=== PATIENT | male | born 1980 | race American Indian/Alaskan Native ===

== ENCOUNTER 2016-05-19 10:08 | Emergency (ER) | payer MEDICARE, MEDICAID ==
[2016-05-19 10:18] VITALS: BP 151/84
[2016-05-19] MEDS ORDERED: Lidocaine 1% 30 ML SDV INJECT ONE (10:34)
[2016-05-19] MEDS ORDERED: cefTRIAXone 1 GM, Lidocaine 1% 2.1 ML IM ONE ×2 (11:00)
[2016-05-19] MEDS ORDERED: Acetaminophen/HYDROcodone 325-5 MG Tab PO ONE (11:01)
[2016-05-19] MEDS ORDERED: Acetaminophen/HYDROcodone 325-10 MG Tab PO ONE (11:18)
--- NOTE | 2016-05-19 14:21 | ER ---
SUBJECTIVE: The patient is a 35-year-old, morbidly obese male with a history of boils and abscesses that have needed drain, and he has even been hospitalized 2 days before, comes back in with another one for about 3 days under his right axilla. No fevers. Feels chills at time. Denies traumas. No shortness of breath. He does have a history of MRSA. He was hoping it would go way, but it has only gotten worse. No other issues. No nausea, vomiting, or diarrhea. He did take an ibuprofen. PAST MEDICAL HISTORY: Significant for boils and abscesses needing drainage and hospitalization and history of MRSA. History of cellulitis. He had pins in hips as a child. CURRENT MEDICATIONS: He does take ibuprofen on occasion. ALLERGIES: He denies any allergies. SOCIAL HISTORY: He does use tobacco. No drugs or alcohol. REVIEW OF SYSTEMS: No fevers. Some chills. No headache. No chest pain or shortness of breath. No abdominal pain. No bowel or bladder changes. No trauma. Please see HPI. PHYSICAL EXAMINATION: Vital Signs: Stable. He is afebrile. He is in quite a bit of pain. He walks in with his right arm up off his side trying to keep pressure from his right axilla. No respiratory distress. Fairly good historian. HEENT: Normocephalic and atraumatic. EXTREMITIES: Focused exam of his right axilla shows a softball sized mass, it is slightly fluctuant at the apex. There is some induration, it is warm, very mild redness. It is isolated to this area, does not appear to go very deep, does not go down the chest wall or down the arm. No lymphadenopathy appreciated anywhere in the neck or the axilla. He has good pulses down the right arm. Good capillary refill. EMERGENCY ROOM COURSE: His right axilla area is swabbed with multiple Povadine sticks, sterile field developed, 1% lidocaine is used for local anesthesia, set up for I and D performed, #11 scalpel used to sharply incise by about 1 inch over the fluctuant apex part of the abscess, large amount of white purulent sanguinous material removed, curved clamps used to scrape the edges in bottom. Further debris removed. The area was washed out, it was then carefully packed with quarter-inch gauze with a tail hanging out and then multiple 4 x 4 gauze was packed on top of this and the area all cleansed and then the patient able to put his arm back down to hold it in place. Culture of the depths of the wound was performed during the procedure. He was given a gram of Rocephin and a tablet of hydrocodone 10/325. He tolerated the procedure well. There were no complications. He feels much better. ASSESSMENT: 1. Right axillary abscesses with I and D of same. Culture obtained. 2. The patient with history of:. a. Boils and I and D and requiring hospitalization. b. History of Methicillin-resistant Staphylococcus aureus. PLAN: Prescription for Bactrim DS 1 p.o. b.i.d. for 10 days, small prescription of hydrocodone 5/325, 1 to 2 q.8 hours p.r.n. severe pain, not controlled by baseline meds with Tylenol and ibuprofen. Keep clean and dry. Dressing changes at least once a day. Follow up with PCP this next week. Make sure change dressing every day. [facility] /[id number]
== END 2016-05-19 11:22 | disposition home or self-care (01) ==
LOC: DL.ED 10:08
DX: L02.411 Cutaneous abscess of right axilla (principal); Z86.14 Personal history of Methicillin resistant Staphylococcus aureus infection
CPT/HCPCS: 10061; 87070; 87077; 87186; 96372; 99283; 99284; A9270; J0696

== ENCOUNTER 2020-01-23 20:07 | Emergency (ER) | payer MEDICAID, MEDICARE ==
[2020-01-23] MEDS ORDERED: Ketorolac 30 MG/ML SDV IVPUSH ONE (20:23)
[2020-01-23] MEDS ORDERED: Ondansetron 4 MG/2 ML SDV IVPUSH ONE (20:23)
[2020-01-23] MEDS ORDERED: Sodium Chloride 0.9% 1,000 ML IV ONE (20:23)
--- NOTE | 2020-01-23 20:27 | EDM.PDOC ---
ED HPI GENERAL MEDICAL PROBLEM - General Chief Complaint: General Stated Complaint: SEVERE BODY ACHES Time Seen by Provider: 01/23/20 20:25 Source of Information: Reports: Patient History Limitations: Reports: No Limitations - History of Present Illness INITIAL COMMENTS - FREE TEXT/NARRATIVE: c/o RUQ pain going to right flank. ate hot dogs last night and been having this pain since about 10pm last night. thought it would go away but not, so came here. Middle Epigastric Pain Score (Numeric/FACES): 8 - Related Data Allergies Allergy/AdvReac Type Severity Reaction Status Date / Time No Known Allergies Allergy Verified 05/19/16 10:17 Home Meds: Home Meds . [No Known Home Meds] 10/02/14 [History] Ibuprofen [Advil] 1,000 mg PO ASDIRECTED PRN 05/19/16 [History] Past Medical History - Past Health History Medical/Surgical History: Denies Medical/Surgical History HEENT History: Reports: None Cardiovascular History: Reports: None Respiratory History: Reports: None Gastrointestinal History: Reports: None Genitourinary History: Reports: None Musculoskeletal History: Reports: None Neurological History: Reports: None Psychiatric History: Reports: None Endocrine/Metabolic History: Reports: None Hematologic History: Reports: None Other Immunologic History: MRSA Oncologic (Cancer) History: Reports: None Dermatologic History: Reports: Cellulitis, Other (See Below) Other Dermatologic History: abscess - Infectious Disease History Infectious Disease History: Reports: MRSA - Past Surgical History Head Surgeries/Procedures: Reports: None Other Musculoskeletal Surgeries/Procedures:: pins in hips as a child (10 years) Social & Family History - Caffeine Use Caffeine Use: Reports: Coffee, Soda - Living Situation & Occupation Living situation: Reports: with Significant Other, with Family ED ROS GENERAL - Review of Systems Review Of Systems: Comprehensive ROS is negative, except as noted in HPI. ED EXAM, GENERAL - Physical Exam Exam: See Below Exam Limited By: No Limitations General Appearance: Alert, WD/WN, Mild Distress, Moderate Distress, Other (pain rolling about) Ears: Hearing Grossly Normal Throat/Mouth: Normal Voice, No Airway Compromise Head: Atraumatic Neck: Non-Tender, Full Range of Motion Respiratory/Chest: No Respiratory Distress Cardiovascular: Regular Rate, Rhythm GI/Abdominal: Guarding, Tender, Other (RUQ). No: Distended, Rigid, Rebound (Male) Exam: Deferred Rectal (Males) Exam: Deferred Neurological: Alert, Oriented, Normal Cognition, Normal Gait, No Motor/Sensory Deficits Psychiatric: Tearful Skin Exam: Warm, Dry, Normal Color Lymphatic: No Adenopathy Course - Vital Signs Last Recorded V/S: Last Vital Signs Temp 36.7 C 01/23/20 20:29 Pulse 72 01/23/20 20:29 Resp 20 01/23/20 20:29 BP 125/55 L 01/23/20 20:29 Pulse Ox 100 01/23/20 20:29 - Orders/Labs/Meds Orders: Active Orders 24 hr Category Date Time Status CORONAVIRUS COVID-19 PCR PHL Routine Lab 01/23/20 20:20 Received LORazepam [Ativan] Med 01/23/20 21:14 Once 1 mg PO ONETIME ONE Sodium Chloride 0.9% [Normal Saline] 1,000 ml Med 01/23/20 20:23 Active IV .BOLUS Isolation [COMM] Routine Oth 01/23/20 20:15 Active Medication Orders Sodium Chloride (Normal Saline) 1,000 mls @ 999 mls/hr IV .BOLUS ONE Stop: 01/23/20 21:23 Last Admin: 01/23/20 20:41 Dose: 999 mls/hr Documented by: JAVIER Labs: Laboratory Tests 01/23/20 01/23/20 01/23/20 Range/Units 20:20 20:20 20:31 WBC 8.7 (5.0-10.0) 10^3/uL RBC 4.94 (4.6-6.2) 10^6/uL Hgb 15.2 (14.0-18.0) g/dL Hct 44.8 (40.0-54.0) % MCV 90.7 (80-100) fL MCH 30.8 (27.0-34.0) pg MCHC 33.9 (33.0-35.0) g/dL Plt Count 202 (150-450) 10^3/uL Neut % (Auto) 73.8 (42.2-75.2) % Lymph % (Auto) 16.6 L (20.5-50.1) % [place] % (Auto) 7.7 (2-8) % Eos % (Auto) 1.4 (1.0-3.0) % Baso % (Auto) 0.5 (0.0-1.0) % Sodium (136-145) mmol/L Potassium (3.5-5.1) mmol/L Chloride (98-107) mmol/L Carbon Dioxide (21-32) mmol/L Anion Gap (7-13) mEq/L BUN (7-18) mg/dL Creatinine (0.70-1.30) mg/dL Est Cr Clr Drug Dosing mL/min Estimated GFR (MDRD) BUN/Creatinine Ratio (No establ ref range) Glucose (74-99) mg/dL Calcium (8.5-10.1) mg/dL Total Bilirubin (0.2-1.0) mg/dL AST (15-37) U/L ALT (16-63) U/L Alkaline Phosphatase (46-116) U/L Total Protein (6.4-8.2) g/dL Albumin (3.4-5.0) g/dL Globulin Albumin/Globulin Ratio Amylase (25-115) U/L Lipase (73-393) U/L Urine Color Dark yellow (YELLOW) Urine Appearance Clear (CLEAR) Urine pH 6.0 (5.0-9.0) Ur Specific [place] >= 1.030 (1.005-1.030) Urine Protein Negative (NEGATIVE) Urine Glucose (UA) Negative (NEGATIVE) Urine Ketones >=160 H (NEGATIVE) Urine Occult Blood Negative (NEGATIVE) Urine Nitrite Negative (NEGATIVE) Urine Bilirubin Small H (NEGATIVE) Urine Urobilinogen 1.0 (0.2-1.0) mg/dL Ur Leukocyte Esterase Negative (NEGATIVE) Urine Opiates Screen Negative (NEGATIVE) Ur Oxycodone Screen Negative (NEGATIVE) Urine Methadone Screen Negative (NEGATIVE) Ur Barbiturates Screen Negative (NEGATIVE) U Tricyclic Antidepress Negative (NEGATIVE) Ur Phencyclidine Scrn Negative (NEGATIVE) Ur Amphetamine Screen Positive H (NEGATIVE) U Methamphetamines Scrn Positive H (NEGATIVE) Urine MDMA Screen Negative (NEGATIVE) U Benzodiazepines Scrn Negative (NEGATIVE) Urine Cocaine Screen Negative (NEGATIVE) U Marijuana (THC) Screen Positive H (NEGATIVE) 01/23/20 Range/Units 20:31 WBC (5.0-10.0) 10^3/uL RBC (4.6-6.2) 10^6/uL Hgb (14.0-18.0) g/dL Hct (40.0-54.0) % MCV (80-100) fL MCH (27.0-34.0) pg MCHC (33.0-35.0) g/dL Plt Count (150-450) 10^3/uL Neut % (Auto) (42.2-75.2) % Lymph % (Auto) (20.5-50.1) % [place] % (Auto) (2-8) % Eos % (Auto) (1.0-3.0) % Baso % (Auto) (0.0-1.0) % Sodium 136 (136-145) mmol/L Potassium 3.6 (3.5-5.1) mmol/L Chloride 100 (98-107) mmol/L Carbon Dioxide 25 (21-32) mmol/L Anion Gap 14.6 H (7-13) mEq/L BUN 17 (7-18) mg/dL Creatinine 0.91 (0.70-1.30) mg/dL Est Cr Clr Drug Dosing 114.76 mL/min Estimated GFR (MDRD) > 60 BUN/Creatinine Ratio 18.7 (No establ ref range) Glucose 166 H (74-99) mg/dL Calcium 8.2 L (8.5-10.1) mg/dL Total Bilirubin 0.8 (0.2-1.0) mg/dL AST 23 (15-37) U/L ALT 25 (16-63) U/L Alkaline Phosphatase 67 (46-116) U/L Total Protein 7.0 (6.4-8.2) g/dL Albumin 3.5 (3.4-5.0) g/dL Globulin 3.5 Albumin/Globulin Ratio 1.0 Amylase 33 (25-115) U/L Lipase 56 L (73-393) U/L Urine Color (YELLOW) Urine Appearance (CLEAR) Urine pH (5.0-9.0) Ur Specific [place] (1.005-1.030) Urine Protein (NEGATIVE) Urine Glucose (UA) (NEGATIVE) Urine Ketones (NEGATIVE) Urine Occult Blood (NEGATIVE) Urine Nitrite (NEGATIVE) Urine Bilirubin (NEGATIVE) Urine Urobilinogen (0.2-1.0) mg/dL Ur Leukocyte Esterase (NEGATIVE) Urine Opiates Screen (NEGATIVE) Ur Oxycodone Screen (NEGATIVE) Urine Methadone Screen (NEGATIVE) Ur Barbiturates Screen (NEGATIVE) U Tricyclic Antidepress (NEGATIVE) Ur Phencyclidine Scrn (NEGATIVE) Ur Amphetamine Screen (NEGATIVE) U Methamphetamines Scrn (NEGATIVE) Urine MDMA Screen (NEGATIVE) U Benzodiazepines Scrn (NEGATIVE) Urine Cocaine Screen (NEGATIVE) U Marijuana (THC) Screen (NEGATIVE) Meds: Medications Generic Name Dose Route Start Last Admin Trade Name Freq PRN Reason Stop Dose Admin Sodium Chloride 1,000 mls @ 999 mls/hr 01/23/20 20:23 01/23/20 20:41 Normal Saline IV 01/23/20 21:23 999 mls/hr .BOLUS ONE Administration Discontinued Medications Generic Name Dose Route Start Last Admin Trade Name Freq PRN Reason Stop Dose Admin Ketorolac Tromethamine 30 mg 01/23/20 20:23 01/23/20 20:42 Toradol IVPUSH 01/23/20 20:24 30 mg ONETIME ONE Administration Ondansetron HCl 4 mg 01/23/20 20:23 01/23/20 20:41 Zofran IVPUSH 01/23/20 20:24 4 mg ONETIME ONE Administration - Re-Assessments/Exams Free Text/Narrative Re-Assessment/Exam: 01/23/20 21:16 results discussed with pt. Departure - Departure Time of Disposition: 21:16 Disposition: Home, Self-Care 01 Condition: Good Clinical Impression: Methamphetamine abuse Abdominal pain Qualifiers: Abdominal location: right upper quadrant Qualified Code(s): R10.11 - Right upper quadrant pain - Discharge Information Instructions: Abdominal Pain, Adult, [id number] Forms: ED Department Discharge Additional Instructions: 1) avoid solid foods next 48 hours 2) follow up at clinic Sepsis Event Note (ED) - Focused Exam Vital Signs: Vital Signs Temp Pulse Resp BP Pulse Ox 01/23/20 20:29 36.7 C 72 20 125/55 L 100 - My Orders Last 24 Hours: My Active Orders 01/23/20 20:15 Isolation [COMM] Routine 01/23/20 20:20 CORONAVIRUS COVID-19 PCR PHL Routine 01/23/20 20:23 Sodium Chloride 0.9% [Normal Saline] 1,000 ml IV .BOLUS 01/23/20 21:14 LORazepam [Ativan] 1 mg PO ONETIME ONE - Assessment/Plan Last 24 Hours: My Active Orders 01/23/20 20:15 Isolation [COMM] Routine 01/23/20 20:20 CORONAVIRUS COVID-19 PCR PHL Routine 01/23/20 20:23 Sodium Chloride 0.9% [Normal Saline] 1,000 ml IV .BOLUS 01/23/20 21:14 LORazepam [Ativan] 1 mg PO ONETIME ONE
[2020-01-23 20:40] VITALS: BP 125/55; PULSE 72
[2020-01-23 20:56] LABS: ANION GAP 14.6 mEq/L (7-13); CHLORIDE,CL 100 mmol/L (98-107); SODIUM,NA 136 mmol/L (136-145)
[2020-01-23] MEDS ORDERED: LORazepam 1 MG Tab PO ONE (21:14)
== END 2020-01-23 21:25 | disposition home or self-care (01) ==
LOC: DL.ED 20:07
DX: R10.11 Right upper quadrant pain (principal); R10.13 Epigastric pain; F15.10 Other stimulant abuse, uncomplicated
CPT/HCPCS: 36415; 80053; 80305; 81003; 82150; 83690; 85025; 87635; 87804; 96374; 96375; 99284; A9270; J1885; J2405; J7030; U0002

== ENCOUNTER 2020-03-08 10:28 | Emergency (ER) | payer SELFPAY | END 2020-03-08 11:33 | disposition left against medical advice (07) | LOC: DL.ED 10:28 | DX: Z53.21 Procedure and treatment not carried out due to patient leaving prior to being seen by health care provider (principal) ==

== ENCOUNTER 2020-03-12 12:04 | Emergency (ER) | payer SELFPAY ==
[2020-03-12 12:13] VITALS: BP 138/73; PULSE 93
[2020-03-12] MEDS ORDERED: Azithromycin 250 MG Tab PO ONE (13:12)
[2020-03-12] MEDS ORDERED: cefTRIAXone 1 GM, Lidocaine 1% 2.1 ML IM ONE ×2 (13:12)
--- NOTE | 2020-03-12 13:24 | EDM.PDOC ---
ED HPI GENERAL MEDICAL PROBLEM - General Chief Complaint: Genitourinary Problem Stated Complaint: STOMACH Time Seen by Provider: 03/12/20 12:35 Source of Information: Reports: Patient, Old Records, RN, RN Notes Reviewed History Limitations: Reports: No Limitations - History of Present Illness INITIAL COMMENTS - FREE TEXT/NARRATIVE: Pt states that he has an STD, states that he has green drainage from his penis, states that this has been going on for 1 week, states that he has not seen his primary care for this issue. He is upset because he has been for 10 years and faithful to his . Onset: Gradual Duration: Day(s): (1-2) Location: Reports: Other (Penis) Quality: Reports: Burning Severity: Moderate Improves with: Reports: None Worsens with: Reports: None Associated Symptoms: Reports: No Other Symptoms Lower Abdomen Pain Score (Numeric/FACES): 6 - Related Data Allergies Allergy/AdvReac Type Severity Reaction Status Date / Time No Known Allergies Allergy Verified 03/12/20 12:13 Home Meds: Home Meds . [No Known Home Meds] 10/02/14 [History] Past Medical History - Past Health History Medical/Surgical History: Denies Medical/Surgical History HEENT History: Reports: None Cardiovascular History: Reports: None Respiratory History: Reports: None Gastrointestinal History: Reports: None Genitourinary History: Reports: None Musculoskeletal History: Reports: None Neurological History: Reports: None Psychiatric History: Reports: None Endocrine/Metabolic History: Reports: None Hematologic History: Reports: None Other Immunologic History: MRSA Oncologic (Cancer) History: Reports: None Dermatologic History: Reports: Cellulitis Other Dermatologic History: abscess - Infectious Disease History Infectious Disease History: Reports: MRSA - Past Surgical History Head Surgeries/Procedures: Reports: None Other Musculoskeletal Surgeries/Procedures:: pins in hips as a child (10 years) Social & Family History - Tobacco Use Tobacco Use Status *Q: Current Every Day Tobacco User Years of Tobacco use: 1 Packs/Tins Daily: 0.2 Second Hand Smoke Exposure: Yes - Caffeine Use Caffeine Use: Reports: Coffee, Energy Drinks, Soda, Tea - Recreational Drug Use Recreational Drug Use: No - Living Situation & Occupation Living situation: Reports: with Significant Other, with Family ED ROS GENERAL - Review of Systems Review Of Systems: Comprehensive ROS is negative, except as noted in HPI. ED EXAM, RENAL/ - Physical Exam Exam: See Below Exam Limited By: No Limitations General Appearance: Alert, WD/WN, No Apparent Distress Head: Atraumatic, Normocephalic Neck: Normal Inspection Respiratory/Chest: No Respiratory Distress, Lungs Clear, Normal Breath Sounds, No Accessory Muscle Use, Chest Non-Tender Cardiovascular: Regular Rate, Rhythm GI/Abdominal: Normal Bowel Sounds, Soft, Non-Tender, No Organomegaly, No Distention, No Abnormal Bruit, No Mass (Male) Exam: Urethral Discharge Back Exam: Normal Inspection Extremities: Normal Inspection Neurological: Alert, Oriented, No Motor/Sensory Deficits Psychiatric: Normal Mood Skin Exam: Warm, Dry, Intact, Normal Color, No Rash Course - Vital Signs Last Recorded V/S: Last Vital Signs Temp 97.8 F 03/12/20 12:09 Pulse 93 03/12/20 12:09 Resp 18 03/12/20 12:09 BP 138/73 03/12/20 12:09 Pulse Ox 100 03/12/20 12:09 - Orders/Labs/Meds Orders: Active Orders 24 hr Category Date Time Status CHLAMYDIA AND GONORRHEA BY TMA Routine Lab 03/12/20 12:15 Received CULTURE URINE [RM] Stat Lab 03/12/20 12:15 Received Labs: Laboratory Tests 03/12/20 Range/Units 12:15 Urine Color Yellow (YELLOW) Urine Appearance Cloudy (CLEAR) Urine pH 6.0 (5.0-9.0) Ur Specific [place] >= 1.030 (1.005-1.030) Urine Protein Trace H (NEGATIVE) Urine Glucose (UA) Negative (NEGATIVE) Urine Ketones Negative (NEGATIVE) Urine Occult Blood Small H (NEGATIVE) Urine Nitrite Negative (NEGATIVE) Urine Bilirubin Negative (NEGATIVE) Urine Urobilinogen 0.2 (0.2-1.0) mg/dL Ur Leukocyte Esterase Moderate H (NEGATIVE) Urine RBC 10-20 H /HPF Urine WBC Packed H (0-5/HPF) /HPF Ur Epithelial Cells Not seen (NOT SEEN) /HPF Urine Bacteria Moderate H (0-FEW/HPF) /HPF Meds: Medications Discontinued Medications Generic Name Dose Route Start Last Admin Trade Name Freq PRN Reason Stop Dose Admin Azithromycin 1,000 mg 03/12/20 13:12 03/12/20 13:25 Zithromax PO 03/12/20 13:13 1,000 mg ONETIME ONE Administration Ceftriaxone Sodium 1 gm/ 0 gm 03/12/20 13:12 Lidocaine HCl 2.1 ml IM 03/12/20 13:13 ONETIME ONE Departure - Departure Time of Disposition: 13:22 Disposition: Home, Self-Care 01 Condition: Good Clinical Impression: Ureteritis - Discharge Information *PRESCRIPTION DRUG MONITORING PROGRAM REVIEWED*: Not Applicable *COPY OF PRESCRIPTION DRUG MONITORING REPORT IN PATIENT SANGEETHA: Not Applicable Instructions: Sexually Transmitted Disease, [id number] Forms: ED Department Discharge Additional Instructions: Rx: Doxycycline 100mg Drink plenty of water. No sexual activity until you are rechecked in clinic in 7 to 10 days. Sepsis Event Note (ED) - Evaluation Sepsis Screening Result: No Definite Risk - Focused Exam Vital Signs: Vital Signs Temp Pulse Resp BP Pulse Ox 03/12/20 12:09 97.8 F 93 18 138/73 100 - My Orders Last 24 Hours: My Active Orders 03/12/20 12:15 CHLAMYDIA AND GONORRHEA BY TMA Routine CULTURE URINE [RM] Stat - Assessment/Plan Last 24 Hours: My Active Orders 03/12/20 12:15 CHLAMYDIA AND GONORRHEA BY TMA Routine CULTURE URINE [RM] Stat
[2020-03-14 11:47] LABS: C.TRACHOMATIS BY TMA Negative (Negative); N.GONORRHOEAE BY TMA Positive (Negative)
== END 2020-03-12 13:44 | disposition home or self-care (01) ==
LOC: DL.ED 12:04
DX: N34.2 Other urethritis (principal)
CPT/HCPCS: 81001; 87086; 87491; 87591; 96372; 99283; A9270-GY; J0696; J2001

== ENCOUNTER 2020-12-04 23:26 | Emergency (ER) | payer OTHER, MEDICAID ==
[2020-12-04] MEDS ORDERED: Metoclopramide 10 MG/2 ML SDV IV ONE (23:27)
[2020-12-04] MEDS ORDERED: Lactated Ringers 1,000 ML IV ONE ×2 (23:27→23:37)
[2020-12-04] MEDS ORDERED: Ondansetron 4 MG/2 ML SDV IV ONE (23:27)
[2020-12-04] MEDS ORDERED: HYDROmorphone 1 MG/ML Syringe IV ONE (23:27)
[2020-12-04] MEDS ORDERED: Ondansetron 4 MG/2 ML SDV IVPUSH ONE (23:37)
--- NOTE | 2020-12-04 23:38 | EDM.PDOC ---
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 six hours, as pain and swelling persist. You may also take acetaminophen (Tylenol) 650-1000mg every six hours, as pain persists. You may stagger these medications so you are taking a dose every three hours. 2.) You may apply ice to the affected areas, as pain persists; 20 minutes, every hour. 3.) You may apply BioFreeze (or similar ointment/cream) to areas of soreness, per package recommendations. 4.) Do not drink alcohol to excess. Do not drink and drive vehicles. 5.) Follow up with your primary care provider regarding today's visit in 3-5 days. - My Orders Last 24 Hours: My Active Orders 12/04/20 23:36 EKG Documentation Completion [RC] STAT - Assessment/Plan Last 24 Hours: My Active Orders 12/04/20 23:36 EKG Documentation Completion [RC] STAT
[2020-12-04] MEDS ORDERED: Iopamidol 612 MG/ML 50 ML SDV IVPUSH ONE (23:41)
[2020-12-04] MEDS ORDERED: Iopamidol 612 MG/ML 100 ML Bottle IVPUSH ONE (23:41)
[2020-12-04] MEDS ORDERED: HYDROmorphone 1 MG/ML Syringe IVPUSH ONE (23:45)
[2020-12-05 00:02] LABS: AMPHETAMINES,URINE NEGATIVE (NEGATIVE); BARBITURATES,URINE NEGATIVE (NEGATIVE); BENZODIAZEPINE,URINE NEGATIVE (NEGATIVE); MDMA (ECSTASY), URINE NEGATIVE (NEGATIVE); METHADONE,URINE NEGATIVE (NEGATIVE); METHAMPHETAMINES,URINE NEGATIVE (NEGATIVE); OPIATES,URINE NEGATIVE (NEGATIVE); OXYCODONE,URINE NEGATIVE (NEGATIVE); PHENCYCLIDINE,URINE NEGATIVE (NEGATIVE); TCA,URINE NEGATIVE (NEGATIVE)
[2020-12-05 00:03] LABS: ANION GAP 16.6 mEq/L (7-13); CHLORIDE,CL 109 mmol/L (98-107); SODIUM,NA 144 mmol/L (136-145)
[2020-12-05 00:29] LABS: PTT,PARTIAL THROMBOPLSTIN TIME 22.1 SEC (22.0-34.0)
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
[2020-12-05] MEDS ORDERED: HYDROmorphone 1 MG/ML Syringe IVPUSH ONE (00:42)
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
[2020-12-05] MEDS ORDERED: Metoclopramide 10 MG/2 ML SDV IVPUSH ONE (00:47)
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
== END 2020-12-05 01:33 | disposition home or self-care (01) ==
LOC: DL.ED 23:26
DX: S20.312A Abrasion of left front wall of thorax, initial encounter (principal); M48.07 Spinal stenosis, lumbosacral region; K57.90 Diverticulosis of intestine, part unspecified, without perforation or abscess without bleeding; F10.129 Alcohol abuse with intoxication, unspecified; Y90.6 Blood alcohol level of 120-199 mg/100 ml; V49.40XA Driver injured in collision with unspecified motor vehicles in traffic accident, initial encounter; Y92.410 Unspecified street and highway as the place of occurrence of the external cause
CPT/HCPCS: 36415; 51701; 70450; 71260; 72125; 73080-LT; 74177; 80053; 80305-QW; 80307; 81003; 83605; 83735; 83880; 84484; 85025; 85610; 85730; 86140; 86850; 86900; 86901; 96374; 96375; 96376; 99285-25; J1170; J2405; J2765; J7120; Q9967

== ENCOUNTER 2020-12-06 09:51 | Emergency (ER) | payer MEDICAID ==
[2020-12-06 10:11] VITALS: BP 142/90; PULSE 62
[2020-12-06] MEDS ORDERED: Lidocaine 1% 30 ML SDV INJECT ONE (11:50)
[2020-12-06] MEDS ORDERED: Clindamycin HCl 150 MG Cap PO ONE (11:50)
[2020-12-06] MEDS ORDERED: traMADol 50 MG Tab PO ONE (11:50)
[2020-12-06] MEDS ORDERED: Bacitracin Oint 1 GM U/D Packet TOP ONE (11:50)
--- NOTE | 2020-12-06 11:50 | EDM.PDOC ---
ED HPI GENERAL MEDICAL PROBLEM - General Chief Complaint: Skin Complaint Stated Complaint: NEEDS BOTTOM OF LEFT FOOT LANCED [id number] Time Seen by Provider: 12/06/20 11:35 Source of Information: Reports: Patient, Old Records, RN, RN Notes Reviewed History Limitations: Reports: No Limitations - History of Present Illness INITIAL COMMENTS - FREE TEXT/NARRATIVE: Pt presents to ER with c/o pain and suspected abscess or infection to the sole of the left forefoot near his toes. Pt states that because of his large size he cannot see the area, but it feels swollen, hot, and painful. Denies fever or chills. Pt states that a few weeks ago he had an area on the same foot that was lanced to release pus. Onset: Gradual Duration: Constant, Getting Worse Location: Reports: Lower Extremity, Left Quality: Reports: Ache, Pressure, Throbbing Severity: Severe Improves with: Reports: Rest (Non-wt bearing) Worsens with: Reports: Other (Wt-bearing/walking) Associated Symptoms: Reports: No Other Symptoms - Related Data Allergies Allergy/AdvReac Type Severity Reaction Status Date / Time No Known Allergies Allergy Verified 03/12/20 12:13 Home Meds: Home Meds . [No Known Home Meds] 10/02/14 [History] Past Medical History - Past Health History Medical/Surgical History: Denies Medical/Surgical History HEENT History: Reports: None Cardiovascular History: Reports: None Respiratory History: Reports: None Gastrointestinal History: Reports: None Genitourinary History: Reports: None Musculoskeletal History: Reports: None Neurological History: Reports: None Psychiatric History: Reports: None Endocrine/Metabolic History: Reports: None Hematologic History: Reports: None Other Immunologic History: MRSA Oncologic (Cancer) History: Reports: None Dermatologic History: Reports: Cellulitis Other Dermatologic History: abscess - Infectious Disease History Infectious Disease History: Reports: MRSA - Past Surgical History Head Surgeries/Procedures: Reports: None Other Musculoskeletal Surgeries/Procedures:: pins in hips as a child (10 years) Social & Family History - Family History Family Medical History: No Pertinent Family History - Tobacco Use Tobacco Use Status *Q: Never Tobacco User - Caffeine Use Caffeine Use: Reports: None - Recreational Drug Use Recreational Drug Use: No - Living Situation & Occupation Living situation: Reports: with Significant Other, with Family ED ROS GENERAL - Review of Systems Review Of Systems: Comprehensive ROS is negative, except as noted in HPI. ED EXAM, SKIN/RASH Exam: See Below Exam Limited By: No Limitations General Appearance: Alert, No Apparent Distress, Obese Throat/Mouth: Normal Voice, No Airway Compromise Respiratory/Chest: No Respiratory Distress Cardiovascular: Normal Peripheral Pulses Extremities: Normal Range of Motion, Normal Capillary Refill, Other (Left plantar forefoot overlying 4th MT head 2cm callus with fluctuant surface.) Neurological: Alert, Oriented, No Motor/Sensory Deficits Psychiatric: Normal Affect, Normal Mood Skin: Warm, Dry ED SKIN PROCEDURES - I&D Site: Left plantar forefoot Skin Prep: Chlorhexidine (Hibiciens), Sterile Drape Local Anesthesia: Lidocaine: 1% Plain Local Anesthetic Volume: 4cc Area Incised With: 11 Blade Drainage: Purulent, Moderate Amount Probed to Break Up Loculations: Yes Packed With: None Sterile Dressinx4(s) Complications: No Complication Description: While injecting lidocaine for local block purulent material and lidocaine sprayed from a plantar wart >3cm promimal and medial to the abscessed callus. Course - Vital Signs Last Recorded V/S: Last Vital Signs Temp 99 F 12/06/20 10:10 Pulse 62 12/06/20 10:10 Resp 18 12/06/20 10:10 BP 142/90 H 12/06/20 10:10 Pulse Ox 96 12/06/20 10:10 - Orders/Labs/Meds Orders: Active Orders 24 hr Category Date Time Status CULTURE WOUND [RM] Stat Lab 12/06/20 11:51 Ordered Meds: Medications Discontinued Medications Generic Name Dose Route Start Last Admin Trade Name Romieq PRN Reason Stop Dose Admin Bacitracin 1 dose 12/06/20 11:50 12/06/20 12:13 Bacitracin Oint 1 Gm U/D Packet TOP 12/06/20 11:51 1 dose ONETIME ONE Administration Clindamycin HCl 300 mg 12/06/20 11:50 12/06/20 12:12 Clindamycin Hcl 150 Mg Cap PO 12/06/20 11:51 300 mg ONETIME ONE Administration Lidocaine HCl 30 ml 12/06/20 11:50 12/06/20 12:16 Lidocaine 1% 30 Ml Sdv INJECT 12/06/20 11:51 30 ml ONETIME ONE Administration Tramadol HCl 50 mg 12/06/20 11:50 12/06/20 12:13 Tramadol 50 Mg Tab PO 12/06/20 11:51 50 mg ONETIME ONE Administration Departure - Departure Time of Disposition: 12:34 Disposition: Home, Self-Care 01 Condition: Good Clinical Impression: Abscess of left foot - Discharge Information *PRESCRIPTION DRUG MONITORING PROGRAM REVIEWED*: No *COPY OF PRESCRIPTION DRUG MONITORING REPORT IN PATIENT SANGEETHA: No Instructions: Skin Abscess, Corns and Calluses, Plantar Warts Forms: ED Department Discharge Additional Instructions: Rx: Clindamycin 300mg Rx: Tramadol 50mg Follow up at [facility] in 1 to 2 days for recheck, to rule out osteomyelitis, and podiatry referral if needed. Sepsis Event Note (ED) - Focused Exam Vital Signs: Vital Signs Temp Pulse Resp BP Pulse Ox 12/06/20 10:10 99 F 62 18 142/90 H 96 - My Orders Last 24 Hours: My Active Orders 12/06/20 11:51 CULTURE WOUND [RM] Stat - Assessment/Plan Last 24 Hours: My Active Orders 12/06/20 11:51 CULTURE WOUND [RM] Stat
== END 2020-12-06 12:50 | disposition home or self-care (01) ==
LOC: DL.ED 09:51
DX: L02.416 Cutaneous abscess of left lower limb (principal)
CPT/HCPCS: 10060; 87070; 99283; A9270

== ENCOUNTER 2021-05-23 14:36 | Emergency (ER) | payer MEDICAID ==
[2021-05-23] MEDS ORDERED: Sodium Chloride 0.9% 10 ML Syringe FLUSH PRN (14:57)
[2021-05-23] MEDS ORDERED: HYDROmorphone 0.5 MG/0.5 ML Syringe IVPUSH ONE (14:57)
[2021-05-23] MEDS ORDERED: Iopamidol 612 MG/ML 100 ML Bottle IVPUSH ONE (14:57)
[2021-05-23] MEDS ORDERED: Lidocaine 2% Viscous Solution 15 ML UD PO ONE (15:20)
[2021-05-23] MEDS ORDERED: Penicillin G Potassium 3 MILLUNITS in Sodium Chloride 0.9% 100 ML IV ONE (15:51)
[2021-05-23 15:52] VITALS: BP 161/91; PULSE 92
== END 2021-05-23 16:46 | disposition home or self-care (01) ==
LOC: DL.ED 14:36
DX: K04.7 Periapical abscess without sinus (principal)
CPT/HCPCS: 36415; 40800; 41800; 70487; 85025; 86140; 87070; 96365; 96375; 99283; 99283-25; A9270-GY; J1170; J2540; J3490; Q9967

== ENCOUNTER 2021-07-09 10:02 | Emergency (ER) | payer MEDICAID | END 2021-07-09 10:45 | disposition left against medical advice (07) | LOC: DL.ED 10:02 | DX: R10.9 Unspecified abdominal pain (principal); Z53.21 Procedure and treatment not carried out due to patient leaving prior to being seen by health care provider ==

== ENCOUNTER 2021-07-17 15:03 | Emergency (ER) | payer MEDICAID ==
[2021-07-17 15:12] VITALS: BP 159/95; PULSE 76
[2021-07-17 15:45] LABS: MDMA (ECSTASY), URINE NEGATIVE (NEGATIVE); METHAMPHETAMINES,URINE NEGATIVE (NEGATIVE)
[2021-07-17 15:46] LABS: AMPHETAMINES,URINE NEGATIVE (NEGATIVE); BARBITURATES,URINE NEGATIVE (NEGATIVE); BENZODIAZEPINE,URINE NEGATIVE (NEGATIVE); METHADONE,URINE NEGATIVE (NEGATIVE); OPIATES,URINE NEGATIVE (NEGATIVE); OXYCODONE,URINE NEGATIVE (NEGATIVE); PHENCYCLIDINE,URINE NEGATIVE (NEGATIVE); TCA,URINE NEGATIVE (NEGATIVE)
[2021-07-17 15:56] LABS: ANION GAP 14.7 mEq/L (7-13); CHLORIDE,CL 107 mmol/L (98-107); SODIUM,NA 142 mmol/L (136-145)
== END 2021-07-17 16:30 ==
LOC: DL.ED 15:03
DX: R10.11 Right upper quadrant pain (principal)
CPT/HCPCS: 36415; 80053; 80305-QW; 81003; 83605; 85025; 99284

== ENCOUNTER 2021-08-17 07:12 | Day surgery (SDC) | payer MEDICAID ==
[~2021-08-17 07:12] MED LIST: Dextrose 5%-0.45% NaCl 1,000 ML IV SCH; Midazolam 1 MG/ML 2 ML SDV ONE; Sodium Chloride 0.9% 10 ML Syringe FLUSH PRN; Sodium Chloride 0.9% 10 ML Syringe FLUSH SCH; fentaNYL 100 MCG/2 ML SDV ONE
[2021-08-17] MEDS ORDERED: Midazolam 1 MG/ML 2 ML SDV IV ONE ×7 (07:13→08:40)
[2021-08-17] MEDS ORDERED: fentaNYL 100 MCG/2 ML SDV IV ONE ×5 (07:13→08:43)
[2021-08-17 12:32] VITALS: BP 131/71; PULSE 63
== END 2021-08-17 10:50 | disposition home or self-care (01) ==
LOC: DL.ENDO 07:12
PROVIDERS: ATTEND Internal Medicine Gastroenterology
DX: K57.30 Diverticulosis of large intestine without perforation or abscess without bleeding (principal); Z01.812 Encounter for preprocedural laboratory examination; Z20.822 Contact with and (suspected) exposure to COVID-19
CPT/HCPCS: J2250; J3010; J7042; U0002

== ENCOUNTER 2021-08-25 09:17 | Emergency (ER) | payer MEDICAID ==
[2021-08-25 09:27] VITALS: BP 145/83; PULSE 78
== END 2021-08-25 10:07 | disposition home or self-care (01) ==
LOC: DL.ED 09:17
DX: L02.612 Cutaneous abscess of left foot (principal)
CPT/HCPCS: 10060; 99283; 99283-25

== ENCOUNTER 2021-09-15 19:55 | Emergency (ER) | payer MEDICAID ==
[2021-09-15 22:46] VITALS: BP 132/87; PULSE 68
== END 2021-09-15 22:26 | disposition home or self-care (01) ==
LOC: DL.ED 19:55
DX: J06.9 Acute upper respiratory infection, unspecified (principal); I10 Essential (primary) hypertension; F17.210 Nicotine dependence, cigarettes, uncomplicated; E66.9 Obesity, unspecified; Z68.30 Body mass index [BMI] 30.0-30.9, adult; Z79.899 Other long term (current) drug therapy; Z86.16 Personal history of COVID-19; Z20.822 Contact with and (suspected) exposure to COVID-19
CPT/HCPCS: 87081; 87430; 99282; 99283; U0002

== ENCOUNTER 2022-06-15 10:27 | Emergency (ER) | payer MEDICAID ==
[2022-06-15 10:41] VITALS: BP 143/90; PULSE 98
== END 2022-06-15 11:51 | disposition home or self-care (01) ==
LOC: DL.ED 10:27
DX: Z48.01 Encounter for change or removal of surgical wound dressing (principal); I10 Essential (primary) hypertension; E66.9 Obesity, unspecified; Z72.0 Tobacco use; Z86.16 Personal history of COVID-19; Z79.899 Other long term (current) drug therapy; Z68.42 Body mass index [BMI] 45.0-49.9, adult
CPT/HCPCS: 99282; 99283

== ENCOUNTER 2022-10-14 10:11 | Emergency (ER) | payer MEDICAID ==
[2022-10-14] MEDS: Ondansetron 4 MG Tab.DIS PO ONE (10:33)
[2022-10-14 10:39] VITALS: BP 146/86; PULSE 63
[2022-10-14] MEDS: Sodium Chloride 0.9% 1,000 ML IV ONE (10:44)
[2022-10-14 10:50] LABS: BASOPHILS PERCENT AUTO 0.3 % (0.0-1.0); EOSINOPHILS PERCENT AUTO 0.8 % (1.0-3.0); HEMATOCRIT 43.6 % (40.0-54.0); HEMOGLOBIN 15.6 g/dL (14.0-18.0); LYMPHOCYTES PERCENT AUTO 23.6 % (20.5-50.1); MEAN CORPUSCULAR HEMOGLOBIN 31.2 pg (27.0-34.0); MEAN CORPUSCULAR HGB CONC 35.8 g/dL (33.0-35.0); MEAN CORPUSCULAR VOLUME 87.2 fL (80-100); MONOCYTES PERCENT AUTO 8.1 % (2-8); NEUTROPHILS PERCENT AUTO 67.2 % (42.2-75.2); PLATELET COUNT,PLT 177 10^3/uL (150-450); WHITE BLOOD CELL COUNT,WBC 7.7 10^3/uL (5.0-10.0)
[2022-10-14 11:15] LABS: APPEARANCE,URINE CLEAR (CLEAR); BILIRUBIN,URINE SMALL (NEGATIVE); COLOR,URINE YELLOW (YELLOW); GLUCOSE,URINE NEGATIVE (NEGATIVE); KETONES,URINE >=160 (NEGATIVE); LEUKOCYTE ESTERASE,URINE NEGATIVE (NEGATIVE); NITRITE,URINE NEGATIVE (NEGATIVE); OCCULT BLOOD,URINE NEGATIVE (NEGATIVE); PH,URINE 8.5 (5.0-9.0); PROTEIN,URINE 100 (NEGATIVE)
[2022-10-14 11:44] LABS: BACTERIA,URINE RARE /HPF (0-FEW/HPF); EPITHELIAL CELLS,URINE FEW /HPF (NOT SEEN); MUCUS,URINE MODERATE /LPF (NOT SEEN); RBC,URINE 0-5 /HPF (0-5); WBC,URINE 0-5 /HPF (0-5/HPF)
[2022-10-14 11:45] LABS: METHAMPHETAMINES,URINE NEGATIVE (NEGATIVE)
[2022-10-14 11:46] LABS: AMPHETAMINES,URINE NEGATIVE (NEGATIVE); BARBITURATES,URINE NEGATIVE (NEGATIVE); BENZODIAZEPINE,URINE NEGATIVE (NEGATIVE); MDMA (ECSTASY), URINE NEGATIVE (NEGATIVE); METHADONE,URINE NEGATIVE (NEGATIVE); OPIATES,URINE NEGATIVE (NEGATIVE); OXYCODONE,URINE NEGATIVE (NEGATIVE); PHENCYCLIDINE,URINE NEGATIVE (NEGATIVE); TCA,URINE NEGATIVE (NEGATIVE)
[2022-10-14] MEDS: Haloperidol Lactate 5 MG/ML SDV IVPUSH ONE (11:46)
[2022-10-14 13:04] LABS: A/G RATIO 1.2; ALBUMIN 3.9 g/dL (3.4-5.0); ANION GAP 14.8 mEq/L (7-13); BUN/CREATININE RATIO 16.1 (No establ ref range); CALCIUM 8.9 mg/dL (8.5-10.1); CREATININE 0.93 mg/dL (0.70-1.30); EST CRCL DRUG DOSING (CG) 109.02 mL/min; POTASSIUM,K 3.8 mmol/L (3.5-5.1); PROTEIN TOTAL,TP 7.2 g/dL (6.4-8.2)
== END 2022-10-14 13:17 | disposition home or self-care (01) ==
LOC: DL.ED 10:11
DX: R11.10 Vomiting, unspecified (principal); R19.7 Diarrhea, unspecified; I10 Essential (primary) hypertension; E66.9 Obesity, unspecified; Z68.41 Body mass index [BMI] 40.0-44.9, adult; Z86.16 Personal history of COVID-19
CPT/HCPCS: 36415; 80053; 80305-QW; 81001; 83690; 85025; 96361; 96374; 99283; 99284-25; A9270-GY; J1630; J7030

== ENCOUNTER 2024-02-04 18:09 | Emergency (ER) | payer MEDICAID ==
[2024-02-04 18:30] VITALS: BP 162/98; PULSE 61
[2024-02-04 18:39] LABS: BASOPHILS PERCENT AUTO 0.5 % (0.0-1.0); EOSINOPHILS PERCENT AUTO 2.1 % (1.0-3.0); HEMATOCRIT 46.1 % (40.0-54.0); HEMOGLOBIN 15.9 g/dL (14.0-18.0); LYMPHOCYTES PERCENT AUTO 43.2 % (20.5-50.1); MEAN CORPUSCULAR HEMOGLOBIN 30.6 pg (27.0-34.0); MEAN CORPUSCULAR HGB CONC 34.5 g/dL (33.0-35.0); MEAN CORPUSCULAR VOLUME 88.8 fL (80-100); NEUTROPHILS PERCENT AUTO 44.2 % (42.2-75.2); PLATELET COUNT,PLT 181 10^3/uL (150-450); RED BLOOD CELL COUNT 5.19 10^6/uL (4.6-6.2); WHITE BLOOD CELL COUNT,WBC 7.5 10^3/uL (5.0-10.0)
[2024-02-04] MEDS: Sodium Chloride 0.9% 10 ML Syringe FLUSH PRN (18:40)
[2024-02-04 18:55] LABS: A/G RATIO 1.2; ALANINE AMINOTRANSFERASE,ALT 40 U/L (16-63); ALBUMIN 4.2 g/dL (3.4-5.0); ALKALINE PHOSPHATASE 72 U/L (46-116); ANION GAP 14.2 mEq/L (7-13); ASPARTATE AMNIOTRANSFERASE,AST 24 U/L (15-37); BILIRUBIN TOTAL 0.5 mg/dL (0.2-1.0); BLOOD UREA NITROGEN,BUN 18 mg/dL (7-18); CALCIUM 8.9 mg/dL (8.5-10.1); CARBON DIOXIDE,CO2 25 mmol/L (21-32); CHLORIDE,CL 104 mmol/L (98-107); EST CRCL DRUG DOSING (CG) 100.38 mL/min; GLUCOSE RANDOM 93 mg/dL (70-99); POTASSIUM,K 4.2 mmol/L (3.5-5.1); PROTEIN TOTAL,TP 7.7 g/dL (6.4-8.2); SODIUM,NA 139 mmol/L (136-145)
[2024-02-04] MEDS: Iopamidol 612 MG/ML 100 ML Bottle IVPUSH ONE (19:04)
[2024-02-04 19:06] LABS: C-REACTIVE PROTEIN < 0.50 ng/dL (<=0.50); ESTIMATED GFR 97 mL/min (>=60)
== END 2024-02-04 19:49 | disposition home or self-care (01) ==
LOC: DL.ED 18:09
DX: M62.838 Other muscle spasm (principal); I10 Essential (primary) hypertension; E66.9 Obesity, unspecified; Z86.16 Personal history of COVID-19; Z79.899 Other long term (current) drug therapy; Z68.41 Body mass index [BMI] 40.0-44.9, adult
CPT/HCPCS: 36415; 70470; 80053; 83735; 85025; 86140; 99283; 99284; Q9967

== ENCOUNTER 2024-06-01 11:09 | Emergency (ER) | payer BC, MEDICAID ==
[2024-06-01 12:45] VITALS: BP 135/86; PULSE 68
== END 2024-06-01 12:30 | disposition home or self-care (01) ==
LOC: DL.ED 11:09
DX: N43.3 Hydrocele, unspecified (principal); I10 Essential (primary) hypertension; E66.9 Obesity, unspecified; M19.90 Unspecified osteoarthritis, unspecified site; Z79.899 Other long term (current) drug therapy; Z79.891 Long term (current) use of opiate analgesic; Z68.41 Body mass index [BMI] 40.0-44.9, adult
CPT/HCPCS: 76870; 99283; 99284

== ENCOUNTER 2024-12-19 12:03 | Emergency (ER) | payer BC ==
[2024-12-19 12:29] LABS: BASOPHILS PERCENT AUTO 0.5 % (0.0-1.0); EOSINOPHILS PERCENT AUTO 2.5 % (1.0-3.0); LYMPHOCYTES PERCENT AUTO 32.8 % (20.5-50.1); MONOCYTES PERCENT AUTO 8.6 % (2-8); NEUTROPHILS PERCENT AUTO 55.6 % (42.2-75.2); PLATELET COUNT,PLT 179 10^3/uL (150-450); RED BLOOD CELL COUNT 5.01 10^6/uL (4.6-6.2); WHITE BLOOD CELL COUNT,WBC 5.6 10^3/uL (5.0-10.0)
[2024-12-19 12:43] LABS: INR 1.0 (0.9-1.2)
[2024-12-19 12:56] LABS: A/G RATIO 1.1; ALANINE AMINOTRANSFERASE,ALT 33.0 U/L (16-63); ASPARTATE AMNIOTRANSFERASE,AST 22.0 U/L (15-37); BILIRUBIN TOTAL 0.6 mg/dL (0.2-1.0); BLOOD UREA NITROGEN,BUN 18.0 mg/dL (7-18); CARBON DIOXIDE,CO2 24.0 mmol/L (21-32); CHLORIDE,CL 108.0 mmol/L (98-107); CREATININE 0.72 mg/dL (0.70-1.30); EST CRCL DRUG DOSING (CG) 138.0 mL/min; GLUCOSE RANDOM 118.0 mg/dL (70-99); POTASSIUM,K 4.1 mmol/L (3.5-5.1); PROTEIN TOTAL,TP 7.1 g/dL (6.4-8.2); SODIUM,NA 140.0 mmol/L (136-145)
[2024-12-19 13:03] LABS: ESTIMATED GFR 117.0 mL/min (>=60); PTT,PARTIAL THROMBOPLSTIN TIME 23.7 SEC (22.0-34.0)
[2024-12-19 13:48] LABS: APPEARANCE,URINE CLEAR (CLEAR); GLUCOSE,URINE NEGATIVE (NEGATIVE); OCCULT BLOOD,URINE NEGATIVE (NEGATIVE)
[2024-12-19] MEDS: methylPREDNISolone 4 MG Tab 21 Tab/Dosepak PO SCH (14:06)
[2024-12-19 14:25] VITALS: BP 164/92; PULSE 51
== END 2024-12-19 14:22 | disposition home or self-care (01) ==
LOC: DL.ED 12:03
DX: M48.02 Spinal stenosis, cervical region (principal); M54.12 Radiculopathy, cervical region; I10 Essential (primary) hypertension; E66.9 Obesity, unspecified; M19.90 Unspecified osteoarthritis, unspecified site; Z79.899 Other long term (current) drug therapy; Z68.41 Body mass index [BMI] 40.0-44.9, adult
CPT/HCPCS: 36415; 71045; 80053; 81003; 84484; 85025; 85610; 85730; 93005; 99285; J7509